=== PATIENT | male | born 1975 | race African-American/Black ===

== ENCOUNTER → 2016-08-18 | Outpatient (CLI) | payer OTHER ==
[2016-08-18 11:16] LABS: ABSOLUTE EOSINOPHILS # (AUTO) 0.1 10^3/uL (0.0-0.6); ABSOLUTE LYMPHOCYTES (AUTO) 1.7 10^3/uL (0.5-4.7); ABSOLUTE MONOCYTES (AUTO) 0.5 10^3/uL (0.1-1.4); ABSOLUTE NEUT (AUTO) 2.2 10^3/uL (1.7-8.2); BASOPHILS % (AUTO) 0.7 % (0-2); EOSINOPHILS % (AUTO) 2.7 % (0-6); HEMATOCRIT 46.5 % (37.9-51.0); HEMOGLOBIN 15.3 g/dL (13.5-17.0); HGB HCT DIFFERENCE -0.6; LYMPHOCYTES % (AUTO) 37.4 % (13-45); MEAN CORPUSCULAR HEMOGLOBIN 29.5 pg (27.0-33.4); MEAN CORPUSCULAR VOLUME 90 fl (80-97); MONOCYTES % (AUTO) 10.7 % (3-13); RED CELL DISTRIBUTION WIDTH 14.1 % (11.5-14.0); SEGMENTED NEUTROPHILS % (AUTO) 48.5 % (42-78); WHITE BLOOD COUNT 4.5 10^3/uL (4.0-10.5)
[2016-08-18 11:43] LABS: ALANINE AMINOTRANSFERASE 43 U/L (21-72); ALBUMIN 4.2 g/dL (3.5-5.0); ALKALINE PHOSPHATASE 67 U/L (38-126); ANION GAP 13 (5-19); ASPARTATE AMINO TRANSFERASE 30 U/L (17-59); BILIRUBIN,DIRECT 0.3 mg/dL (0.0-0.4); BILIRUBIN,TOTAL 0.7 mg/dL (0.2-1.3); BLOOD UREA NITROGEN 11 mg/dL (7-20); CALCIUM 9.3 mg/dL (8.4-10.2); CARBON DIOXIDE 25 mmol/L (22-30); CHLORIDE 103 mmol/L (98-107); CHOLESTEROL 201.57 mg/dL (0-200); CREATININE RESULT 0.95 mg/dL (0.52-1.25); Direct HDL 52 mg/dL (>40); GLUCOSE 102 mg/dL (75-110); POTASSIUM 4.8 mmol/L (3.6-5.0); SODIUM 141.2 mmol/L (137-145); TRIGLYCERIDES 103 mg/dL (<150)
[2016-08-18 11:54] LABS: DIRECT LDL 126 mg/dL (<100)
== END ==
LOC: CCC 09:55
DX: Z00.00 Encounter for general adult medical examination without abnormal findings (principal); K92.1 Melena
CPT/HCPCS: 36415; 80053; 80061; 82043; 83036; 84443; 85025; 86677

== ENCOUNTER 2016-09-12 15:42 | Emergency (ER) | payer OTHER ==
[2016-09-12] MEDS ORDERED: DEXAMETHASONE SOD PHOS INJ 10 MG/1 ML VIAL IM ONE (16:05)
--- NOTE | 2016-09-12 16:21 | ER Document Report ---
HPI - HPI Patient complains to provider of: RASH, URTICARIA Onset: Yesterday Onset/Duration: Sudden Quality of pain: Burning Severity: Mild Pain Level: 2 Context: PT STATES WELTS STARTED ON ARMS, NOW RASH HAS SPREAD TO FACE, GROIN AND UPPER BACK. DENIES NEW PRODUCTS OR MEDS. NO RESPIRATORY DIFFICULTY. AREAS COMING AND GOING. Associated Symptoms: None Exacerbated by: Denies Relieved by: Denies Similar symptoms previously: No Recently seen / treated by doctor: No - ROS ROS below otherwise negative: Yes Systems Reviewed and Negative: Yes All other systems reviewed and negative - CONSTITUTIONAL Constitutional: DENIES: Fever - EENT EENT: DENIES: Congestion - NEURO Neurology: DENIES: Headache - CARDIOVASCULAR Cardiovascular: DENIES: Chest pain - RESPIRATORY Respiratory: DENIES: Trouble Breathing - GASTROINTESTINAL Gastrointestinal: DENIES: Abdominal Pain - URINARY Urinary: DENIES: Dysuria - REPRODUCTIVE Reproductive: DENIES: : - MUSCULOSKELETAL Musculoskeletal: DENIES: Extremity pain - DERM Skin Color: Normal Skin Problems: Rash Past Medical History - General Information source: Patient - Social History Smoking Status: Current Every Day Smoker Cigarette use (# per day): Yes - E CIG Chew tobacco use (# tins/day): No Frequency of alcohol use: Social Drug Abuse: None Lives with: Spouse/Significant other Family History: Reviewed & Not Pertinent Patient has suicidal ideation: No Patient has homicidal ideation: No GI Medical History: Reports: Hx Gastroesophageal Reflux Disease Past Surgical History: Reports: Hx Appendectomy, Hx Orthopedic Surgery - R knee - Immunizations Hx Diphtheria, Pertussis, Tetanus Vaccination: Yes Vertical Provider Document - CONSTITUTIONAL Agree With Documented VS: Yes General Appearance: WD/WN, No Apparent Distress - INFECTION CONTROL TRAVEL OUTSIDE OF THE [place] IN LAST 30 DAYS: No - HEENT HEENT: Atraumatic, Normal ENT Exam, Normocephalic - RESPIRATORY Respiratory: Breath Sounds Normal, No Respiratory Distress O2 Sat by Pulse Oximetry: 97 - CARDIOVASCULAR Cardiovascular: Regular Rate, Regular Rhythm - MUSCULOSKELETAL/EXTREMETIES Musculoskeletal/Extremeties: GODWIN KRISHNAMURTHY - NEURO Level of Consciousness: Awake, Alert, Appropriate - DERM Integumentary: Warm, Dry, Rash Notes: Multiple areas of flat and rough an welt like areas to arms, face, and left upper back. Course - Vital Signs Vital signs: Temp Pulse Resp BP Pulse Ox 98.4 F 71 16 136/92 H 97 04/17 15:46 09/12/16 15:46 09/12/16 15:46 09/12/16 15:46 09/12/16 15:46 Discharge - Discharge Clinical Impression: Rash Condition: Good Disposition: HOME, SELF-CARE Additional Instructions: MEDS PRESCRIBED OTC CLARITIN OR ZYRTEC 10MG FOR DAYTIME USE IF ATARAX MAKES YOU SLEEPY OTC PEPCID 20MG EVERY 12 HRS ALONG WITH ATARAX OR CLARITIN OTC HYDROCORTISONE CREAM TO RASH FOLLOW UP WITH YOUR DOCTOR THURSDAY IF NOT IMPROVED RETURN IF WORSENS Prescriptions: Hydroxyzine HCl [Atarax 25 mg Tablet] 1 - 2 tab PO QID #25 tablet
[2016-09-12 16:50] VITALS: BP 130/90
== END 2016-09-12 16:50 | disposition home or self-care (01) ==
LOC: ER 15:42
DX: R21 Rash and other nonspecific skin eruption (principal); L50.9 Urticaria, unspecified; F17.290 Nicotine dependence, other tobacco product, uncomplicated
CPT/HCPCS: 99282; 96372; J1100

== ENCOUNTER 2016-11-09 14:52 | Emergency (ER) | payer SELFPAY ==
[2016-11-09 15:26] VITALS: BP 126/74
[2016-11-09] MEDS ORDERED: IBUPROFEN 800 MG TABLET PO ONE (16:01)
[2016-11-09] MEDS ORDERED: BENZONATATE 100 MG CAPSULE PO ONE (16:01)
--- NOTE | 2016-11-09 16:02 | ER Document Report ---
HPI - HPI Patient complains to provider of: Sore throat Onset: Other - 5 days Onset/Duration: Persistent Quality of pain: Achy Pain Level: 2 Context: Patient presents complaining of sore throat with mild cough for the past 5 days. Patient child is here with upper respiratory symptoms as well. Associated Symptoms: Nonproductive cough, Sore throat. denies: Fever Exacerbated by: Denies Relieved by: Denies Similar symptoms previously: Yes Recently seen / treated by doctor: No - ROS ROS below otherwise negative: Yes Systems Reviewed and Negative: Yes All other systems reviewed and negative - CONSTITUTIONAL Constitutional: DENIES: Fever - EENT EENT: REPORTS: Sore Throat, Congestion - CARDIOVASCULAR Cardiovascular: DENIES: Chest pain - RESPIRATORY Respiratory: REPORTS: Coughing. DENIES: Trouble Breathing - GASTROINTESTINAL Gastrointestinal: DENIES: Nausea, Patient vomiting, Diarrhea - REPRODUCTIVE Reproductive: DENIES: : - DERM Skin Color: Normal Skin Problems: None Past Medical History - General Information source: Patient - Social History Smoking Status: Current Every Day Smoker Frequency of alcohol use: None Drug Abuse: None Occupation: [employer] Lives with: Family Family History: Reviewed & Not Pertinent - Medical History Medical History: Negative Endocrine Medical History: Denies: Hx Diabetes Mellitus Type 1, Hx Diabetes Mellitus Type 2 Renal/ Medical History: Denies: Hx Peritoneal Dialysis GI Medical History: Reports: Hx Gastroesophageal Reflux Disease Past Surgical History: Reports: Hx Appendectomy, Hx Orthopedic Surgery - R knee - Immunizations Hx Diphtheria, Pertussis, Tetanus Vaccination: Yes Vertical Provider Document - CONSTITUTIONAL Agree With Documented VS: Yes Exam Limitations: No Limitations General Appearance: WD/WN, No Apparent Distress - INFECTION CONTROL TRAVEL OUTSIDE OF THE [place] IN LAST 30 DAYS: No - HEENT HEENT: Atraumatic, Normocephalic, Pharyngeal Tenderness, Pharyngeal Erythema. negative: Tympanic Membrane Red, Tympanic Membrane Bulging - NECK Neck: Lymphadenopathy-Left, Lymphadenopathy-Right - RESPIRATORY Respiratory: No Respiratory Distress, Other - occasional dry cough O2 Sat by Pulse Oximetry: 96 - CARDIOVASCULAR Cardiovascular: Regular Rate, Regular Rhythm, No Murmur - BACK Back: Normal Inspection - MUSCULOSKELETAL/EXTREMETIES Musculoskeletal/Extremeties: MAEW - NEURO Level of Consciousness: Awake, Alert, Appropriate Motor/Sensory: No Motor Deficit - DERM Integumentary: Warm, Dry, No Rash Course - Vital Signs Vital signs: Temp Pulse Resp BP Pulse Ox 98.3 F 75 18 126/74 H 96 11/09/16 15:23 11/09/16 15:23 11/09/16 15:23 11/09/16 15:23 11/09/16 15:23 - Laboratory Laboratory results interpreted by me: 11/09/16 17:06 Labs- Entire Visit 11/09/16 15:50 Group A Strep Rapid NEGATIVE Discharge - Discharge Clinical Impression: Sore throat (viral) Upper respiratory infection Qualifiers: URI type: unspecified URI Qualified Code(s): J06.9 - Acute upper respiratory infection, unspecified Condition: Stable Disposition: HOME, SELF-CARE Instructions: Sore Throat ([facility]), Upper Respiratory Illness ([facility]) Additional Instructions: Return immediately for any new or worsening symptoms Followup with your primary care provider, call tomorrow to make a followup appointment Throat culture is pending, we will call if you need any different treatment Prescriptions: Benzonatate [Tessalon Perle 100 mg Capsule] 100 mg PO Q8HP PRN #20 cap PRN Reason: Naproxen [Naprosyn 250 Nmg Tablet] 1 tab PO BID #14 tablet Forms: Return to Work
== END 2016-11-09 18:00 | disposition home or self-care (01) ==
LOC: ER 14:52
DX: J02.8 Acute pharyngitis due to other specified organisms (principal); B97.89 Other viral agents as the cause of diseases classified elsewhere; J06.9 Acute upper respiratory infection, unspecified; R05 Cough; R59.0 Localized enlarged lymph nodes; F17.200 Nicotine dependence, unspecified, uncomplicated
CPT/HCPCS: 87070; 87880; 99283

== ENCOUNTER 2019-12-04 18:10 | Emergency (ER) | payer OTHER ==
[2019-12-04 18:22] VITALS: BP 137/82
[2019-12-04] MEDS ORDERED: LIDOCAINE 2% INJ (20 MG/ML) 20 ML MDV INJ ONE (18:29)
--- NOTE | 2019-12-04 18:29 | ER Document Report ---
ED Medical Screen (RME) - General Chief Complaint: Laceration Stated Complaint: LACERATION/LEFT MIDDLE FINGER Time Seen by Provider: 12/04/19 18:28 Mode of Arrival: Ambulatory Notes: This 44-year-old male presented to the emergency room today with a laceration to his left third digit at the webbing and with a knife trying to separate frozen burgers. TRAVEL OUTSIDE OF THE [place] IN LAST 30 DAYS: No - HPI Onset: Just prior to arrival - Related Data Allergies/Adverse Reactions: No Known Allergies Allergy (Verified 12/04/19 18:26) Past Medical History Endocrine Medical History: Denies: Hx Diabetes Mellitus Type 1, Hx Diabetes Mellitus Type 2 Renal/ Medical History: Denies: Hx Peritoneal Dialysis GI Medical History: Reports: Hx Gastroesophageal Reflux Disease Past Surgical History: Reports: Hx Appendectomy, Hx Orthopedic Surgery - R knee - Immunizations Hx Diphtheria, Pertussis, Tetanus Vaccination: Yes Physical Exam - Vital signs Vitals: Temp Pulse Resp BP Pulse Ox 98.9 F 61 16 137/82 H 96 12/04/19 18:20 12/04/19 18:20 12/04/19 18:20 12/04/19 18:20 12/04/19 18:20 Course - Vital Signs Vital signs: Temp Pulse Resp BP Pulse Ox 98.9 F 61 16 137/82 H 96 12/04/19 18:20 12/04/19 18:20 12/04/19 18:20 12/04/19 18:20 12/04/19 18:20
--- NOTE | 2019-12-04 18:46 | ER Document Report ---
ED Wound - General Chief Complaint: Laceration Stated Complaint: LACERATION/LEFT MIDDLE FINGER Time Seen by Provider: 12/04/19 18:28 Mode of Arrival: Ambulatory Notes: CHIEF COMPLAINT: Laceration left third finger HPI: 44-year-old male presenting to the emergency department for evaluation of laceration to the base of the left third finger. Patient was trying to separate frozen hamburgers with a knife and slipped cutting the finger. States he is up-to-date on his tetanus vaccination denies numbness or tingling in the tip of the finger states he can flex and extend the finger without difficulty ROS: See HPI - all other systems were reviewed and are otherwise negative Constitutional: no fever Integumentary: + laceration Allergy: no hives Musculoskeletal: + extremity pain or swelling Neurological: no numbness/tingling, no weakness MEDICATIONS: I agree with the patient medications as charted by the RN. ALLERGIES: I agree with the allergies as charted by the RN. PAST MEDICAL HISTORY/PAST SURGICAL HISTORY: Reviewed and agree as charted by RN. SOCIAL HISTORY: Reviewed and agree as charted by RN. FAMILY HISTORY: No significant familial comorbid conditions directly related to patient complaint EXAM: Reviewed vital signs as charted by RN. CONSTITUTIONAL: Alert and oriented and responds appropriately to questions. Well-appearing; well-nourished HEAD: Normocephalic; atraumatic EYES: Conjunctivae clear, sclerae non-icteric ENT: normal nose; no rhinorrhea; moist mucous membranes NECK: Supple without meningismus CARD: symmetric distal pulses RESP: Normal chest excursion without splinting or tachypnea ABD/GI: non-distended BACK: The back appears normal EXT: Normal ROM in all joints; no cyanosis, no effusions, no edema SKIN: Normal color for age and race; warm; dry; good turgor; superficial linear 1 cm laceration to the volar aspect of the proximal phalange of the left third finger. No visible tendon injury. Patient is able to fully flex and extend the finger at the MCP, PIP and DIP joints was region. Sensation is intact in the distal fingertip to touch with capillary refill less than 3 seconds NEURO: Moves all extremities equally; Motor and sensory function intact PSYCH: The patient's mood and manner are appropriate. Grooming and personal hygiene are appropriate. MDM: 44-year-old male with a superficial laceration on the proximal aspect of the right third finger volar surface. The laceration does not cross the MCP joint space region. Does not open on flexion extension of the finger. Will Dermabond closed TRAVEL OUTSIDE OF THE [place] IN LAST 30 DAYS: No - Related Data Allergies/Adverse Reactions: No Known Allergies Allergy (Verified 12/04/19 18:26) Past Medical History - Social History Smoking Status: Never Smoker Chew tobacco use (# tins/day): No Frequency of alcohol use: Occasional Drug Abuse: None Family History: Reviewed & Not Pertinent Endocrine Medical History: Denies: Hx Diabetes Mellitus Type 1, Hx Diabetes Mellitus Type 2 Renal/ Medical History: Denies: Hx Peritoneal Dialysis GI Medical History: Reports: Hx Gastroesophageal Reflux Disease Past Surgical History: Reports: Hx Appendectomy, Hx Orthopedic Surgery - R knee - Immunizations Hx Diphtheria, Pertussis, Tetanus Vaccination: Yes Physical Exam - Vital signs Vitals: Temp Pulse Resp BP Pulse Ox 98.9 F 61 16 137/82 H 96 12/04/19 18:20 12/04/19 18:20 12/04/19 18:20 12/04/19 18:20 12/04/19 18:20 Course - Vital Signs Vital signs: Temp Pulse Resp BP Pulse Ox 98.9 F 61 16 137/82 H 96 12/04/19 18:20 12/04/19 18:20 12/04/19 18:20 12/04/19 18:20 12/04/19 18:20 Procedures - Laceration/Wound Repair Left Proximal Finger 3rd digit Time completed: 18:46 Wound length (cm): 1 Wound's Depth, Shape: Superficial Laceration pre-procedure: Other - water Wound explored: Clean Wound Repaired With: Dermabond Post-procedure wound care: Sterile dressing applied Post-procedure NV exam normal: Yes Complications: No Discharge - Discharge Clinical Impression: Laceration of finger, left Qualifiers: Encounter type: initial encounter Finger: middle finger Damage to nail status: without damage Foreign body presence: without foreign body Qualified Code(s): S61.213A - Laceration without foreign body of left middle finger without damage to nail, initial encounter Condition: Stable Disposition: HOME, SELF-CARE Additional Instructions: 1. keep the wound area clean and dry 2. return to the ED for any redness, soft tissue swelling or signs of infection or follow up with your PCP 3. do not apply antibiotic ointment over the Dermabond 4. you may cover the wound area with a dry dressing. Do not pick at the Dermabond, it will flake off over time.
== END 2019-12-04 18:45 | disposition home or self-care (01) ==
LOC: ER 18:10
DX: S61.213A Laceration without foreign body of left middle finger without damage to nail, initial encounter (principal); W26.0XXA Contact with knife, initial encounter; Y93.G9 Activity, other involving cooking and grilling
CPT/HCPCS: 99282